=== PATIENT | male | born 1970 | race Caucasian/White ===

== ENCOUNTER 2017-12-22 20:57 | Outpatient (CLI) | payer SELFPAY | END 2017-12-23 06:35 | disposition home or self-care (01) | LOC: SLEEP 20:57 | PROVIDERS: ATTEND Nurse Practitioner Community Health | DX: G47.33 Obstructive sleep apnea (adult) (pediatric) (principal) | CPT/HCPCS: 95811 ==

== ENCOUNTER → 2018-03-31 | Outpatient (CLI) | payer OTHER ==
--- NOTE | 2018-03-31 17:46 | Diagnostic Imaging Report ---
INDICATION: Neck pain radiating to both arms. TIME OF EXAM: 04:51 p.m. FINDINGS: Curvature and alignment of the cervical spine is within normal limits. There is degenerative disc disease at the C6-C7 and C7-T1 levels with disc space narrowing and marginal spurring. No fractures are seen. Prevertebral tissues are within normal limits. Odontoid appears intact. There is multilevel facet arthropathy. IMPRESSION: Lower cervical spondylosis. No acute bony abnormality is detected. Dictated by: Dictated on workstation # [id number]
--- NOTE | 2018-03-31 17:52 | Diagnostic Imaging Report ---
INDICATION: Mid back pain. TIME OF EXAM: 04:56 p.m. FINDINGS: Curvature and alignment of the thoracic spine is normal. Vertebral body heights are maintained. No acute compression fracture is seen. Generalized thoracic spondylosis with variable disc space narrowing and marginal spurring is noted. The pedicles and paraspinous line are intact. IMPRESSION: Thoracic spondylosis. No acute bony abnormality is detected. Dictated by: Dictated on workstation # [id number]
== END ==
LOC: RAD 16:02
PROVIDERS: ATTEND Chiropractor Sports Physician
DX: M47.813 Spondylosis without myelopathy or radiculopathy, cervicothoracic region (principal)
CPT/HCPCS: 72040; 72072

== ENCOUNTER 2018-10-26 15:15 | Emergency (ER) | payer SELFPAY ==
[~2018-10-26] VITALS: Ht 175.3 cm; Wt 111.1 kg
--- OUTSIDE RECORDS SUMMARY | 2018-10-26 15:20 | XMS REPORT ---
Author Author MARGRET FARFAN Organization [facility] Address [address] [place] [address] Care Team Providers Care Vest Finisher Name Role Phone MARGRET FARFAN Unavailable PROBLEMS Type Condition ICD9-CM Code HOV93-GG Code Onset Dates Condition Status SNOMED Code Problem Simple chronic bronchitis J41.0 Active 54159503 Problem Irritable bowel syndrome with diarrhea K58.0 Active 525035970 Problem LINDA (obstructive sleep apnea) G47.33 Active 94861214 Problem Mild intermittent asthma without complication J45.20 Active 121474715 Problem Plantar wart of both feet B07.0 Active 47510159135689556 Problem Seasonal allergic rhinitis due to other allergic trigger J30.89 Active 033584249 ALLERGIES No Information ENCOUNTERS Encounter Location Date Diagnosis [facility] [id number] [place] [address] May, [id number] [id number] Apr, [facility] [id number] [place] [address] Apr, [facility] [id number] [place] [address] Mar, Bronchitis J40 [facility] [id number] [place] [address] Mar, LINDA (obstructive sleep apnea) G47.33 [facility] [address] [address] Feb, Plantar wart of both feet B07.0 ; Bilateral acute otitis media H66.93 and Simple chronic bronchitis J41.0 [facility] [id number] [place] [address] Feb, Common wart B07.8 ; Plantar wart of both feet B07.0 and Seasonal allergic rhinitis due to other allergic trigger J30.89 [place] [address] [address] 07 Feb, 2018 Bronchitis J40 and Irritable bowel syndrome with diarrhea K58.0 [place] [id number] [place] [address] Feb, [place] [address] [address] Jan, [place] [address] [address] Dec, [address] [place] [id number] Dec, Dental examination Z01.20 [place] [address] [address] [address] Dec, Cervicalgia M54.[id number] [place] [id number] Nov, Dental examination Z01.20 [place] [id number] [place] [address] Nov, LINDA (obstructive sleep apnea) G47.33 [place] [id number] [place] [address] Nov, Other secondary chronic gout of hip with tophus, 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 [place] [id number] [place] [address] 04 Nov, 2017 LINDA (obstructive sleep apnea) G47.33 ; Other eczema L30.8 and Mild intermittent asthma without complication J45.20 [place] [id number] [place] [address] Nov, LINDA (obstructive sleep apnea) G47.33 ; Cervicalgia M54.2 ; Other secondary chronic gout of hip with tophus, 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 ; Otitis of both ears H66.93 ; Other eczema L30.8 and Mild intermittent asthma without complication J45.20 IMMUNIZATIONS No Known Immunizations SOCIAL HISTORY Never Assessed REASON FOR VISIT PFT PLAN OF CARE VITAL SIGNS MEDICATIONS Unknown Medications RESULTS No Results PROCEDURES No Known procedures INSTRUCTIONS MEDICATIONS ADMINISTERED No Known Medications MEDICAL (GENERAL) HISTORY Type Description Date Medical History Narcolepsy Medical History Somnabulism Medical History Asthma Medical History Sleep Apnea Medical History Gout Medical History Eczema Medical History Hearing Loss - Right Ear Medical History Arthritis Surgical History Cholecysectomy 2017 Surgical History Umbilical Hernia Repair 2017 Hospitalization History Gallbladder Related Illness - Prior to Cholecysectomy 2017
--- OUTSIDE RECORDS SUMMARY | 2018-10-26 15:20 | XMS REPORT ---
Author Author MARGRET FARFAN Organization [facility] Address [address] [place] [address] Care Team Providers Care Mechanical Equipment Test Engineer Name Role Phone MARGRET FARFAN Unavailable PROBLEMS Type Condition ICD9-CM Code VCE63-JD Code Onset Dates Condition Status SNOMED Code Problem Simple chronic bronchitis J41.0 Active 67268239 Problem Irritable bowel syndrome with diarrhea K58.0 Active 632284516 Problem LINDA (obstructive sleep apnea) G47.33 Active 86113485 Problem Mild intermittent asthma without complication J45.20 Active 080684893 Problem Plantar wart of both feet B07.0 Active 52425751072438346 Problem Seasonal allergic rhinitis due to other allergic trigger J30.89 Active 041765566 ALLERGIES No Information ENCOUNTERS Encounter Location Date Diagnosis [facility] [id number] [place] [address] May, [facility] [address] [id number] [id number] Apr, [facility] [address] [place] [address] Mar, Bronchitis J40 [facility] [id number] [place] [address] Mar, LINDA (obstructive sleep apnea) G47.33 [facility] [address] [place] [address] Feb, Plantar wart of both feet B07.0 ; Bilateral acute otitis media H66.93 and Simple chronic bronchitis J41.0 [facility] [address] [place] [address] Feb, Common wart B07.8 ; Plantar wart of both feet B07.0 and Seasonal allergic rhinitis due to other allergic trigger J30.89 [address] [place] [address] [place] [address] 07 Feb, 2018 Bronchitis J40 and Irritable bowel syndrome with diarrhea K58.0 [place] [address] [place] [address] Feb, [place] [id number] [place] [address] Jan, [place] [id number] [place] [address] Dec, [address] [place] [phone] Dec, Dental examination Z01.20 [place] [id number] [place] [address] Dec, Cervicalgia M54.[address] [place] [id number] Nov, Dental examination Z01.20 [place] [id number] [place] [address] Nov, LINDA (obstructive sleep apnea) G47.33 [place] [id number] [place] [address] Nov, Other secondary chronic gout of hip with tophus, 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 [place] [address] [place] [address] Nov, LINDA (obstructive sleep apnea) G47.33 ; Other eczema L30.8 and Mild intermittent asthma without complication J45.20 [place] [address] [place] [address] Nov, LINDA (obstructive sleep apnea) G47.33 ; Cervicalgia M54.2 ; Other secondary chronic gout of hip with tophus, 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
--- OUTSIDE RECORDS SUMMARY | 2018-10-26 15:20 | XMS REPORT ---
Author Author MARGRET FARFAN Organization [facility] Address [address] [place] [address] Care Team Providers Care Blind Eyeletter Name Role Phone MARGRET FARFAN Unavailable PROBLEMS Type Condition ICD9-CM Code FYE11-IO Code Onset Dates Condition Status SNOMED Code Problem Simple chronic bronchitis J41.0 Active 44719708 Problem Irritable bowel syndrome with diarrhea K58.0 Active 215190967 Problem LINDA (obstructive sleep apnea) G47.33 Active 04191932 Problem Mild intermittent asthma without complication J45.20 Active 113362333 Problem Plantar wart of both feet B07.0 Active 63087175586981786 Problem Seasonal allergic rhinitis due to other allergic trigger J30.89 Active 338786715 ALLERGIES No Information ENCOUNTERS Encounter Location Date Diagnosis [place] [address] [address] May, [place] [address] [address] May, Bronchitis J40 [place] [address] [address] Apr, [place] [address] [address] Mar, Bronchitis J40 [facility] [address] [address] Mar, LINDA (obstructive sleep apnea) G47.33 [place] [address] [address] Feb, Plantar wart of both feet B07.0 ; Bilateral acute otitis media H66.93 and Simple chronic bronchitis J41.0 [place] [address] [address] Feb, Common wart B07.8 ; Plantar wart of both feet B07.0 and Seasonal allergic rhinitis due to other allergic trigger J30.89 [place] [address] [id number] [place] [address] 07 Feb, 2018 Bronchitis J40 and Irritable bowel syndrome with diarrhea K58.0 [place] [id number] [place] [address] Feb, [facility] [id number] [place] [address] Jan, [place] [id number] [place] [address] Dec, [address] [id number] [place] [phone] Dec, Dental examination Z01.20 [place] [id number] [place] [address] Dec, Cervicalgia M54.[id number] [place] [phone] Nov, Dental examination Z01.20 [place] [id number] [place] [address] Nov, LINDA (obstructive sleep apnea) G47.33 [place] [id number] [place] [address] Nov, Other secondary chronic gout of hip with tophus, 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 [place] [address] [place] [address] 04 Nov, 2017 LINDA (obstructive sleep apnea) G47.33 ; Other eczema L30.8 and Mild intermittent asthma without complication J45.20 [place] [address] [address], [place] [address] Nov, LINDA (obstructive sleep apnea) G47.33 ; Cervicalgia M54.2 ; Other secondary chronic gout of hip with tophus, 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
--- OUTSIDE RECORDS SUMMARY | 2018-10-26 15:21 | XMS REPORT ---
Author Author MARGRET FARFAN Organization [facility] Address [address] [place] [address] Care Team Providers Care Golf Course Mechanic Name Role Phone MARGRET FARFAN Unavailable PROBLEMS Type Condition ICD9-CM Code CXV09-MQ Code Onset Dates Condition Status SNOMED Code Problem Irritable bowel syndrome with diarrhea K58.0 Active 109341461 Problem LINDA (obstructive sleep apnea) G47.33 Active 88081569 Problem Mild intermittent asthma without complication J45.20 Active 534037245 ALLERGIES Substance Reaction Event Type Date Status Penicillin G Potassium anaphylaxis Drug Allergy Dec, Active ENCOUNTERS Encounter Location Date Diagnosis [address] [id number] [id number] Apr, [facility] [id number] [place] [address] Feb, [facility] [id number] [place] [address] Feb, Bronchitis J40 and Irritable bowel syndrome with diarrhea K58.0 [facility] [id number] [place] [address] Feb, [facility] [id number] [place] [address] Jan, [facility] [id number] [place] [address] Dec, [facility] 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 [place] [address] [place] [address] 04 Nov, 2017 LINDA (obstructive sleep apnea) G47.33 ; Other eczema L30.8 and Mild intermittent asthma without complication J45.20 [place] [id number] [address] Nov, LINDA (obstructive sleep apnea) G47.33 ; Cervicalgia M54.2 ; Other secondary chronic gout of hip with tophus, 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 ; Otitis of both ears H66.93 ; Other eczema L30.8 and Mild intermittent asthma without complication J45.20 IMMUNIZATIONS No Known Immunizations SOCIAL HISTORY Never Assessed REASON FOR VISIT Abdominal pain-QAMAR ruvalcaba, sleep study PLAN OF CARE VITAL SIGNS Height 69 in 2017-12-25 Weight 265.1 lbs 2017-12-25 Temperature 97.4 degrees Fahrenheit 2017-12-25 Heart Rate 105 bpm 2017-12-25 Respiratory Rate 20 2017-12-25 BMI 39.14 kg/m2 2017-12-25 Blood pressure systolic 116 mmHg 2017-12-25 Blood pressure diastolic 82 mmHg 2017-12-25 MEDICATIONS Medication Instructions Dosage Frequency Start Date End Date Duration Status Cyclobenzaprine HCl 10 mg Orally Three times a day 1 tablet as needed 8h Dec, Active Symbicort 80-4.5 MCG/ACT Inhalation Twice a day 2 puffs 12h Nov, Active Indomethacin 25 MG Orally Twice a day 1 capsule with food or milk 12h Nov, Nov, Active Xopenex HFA 45 MCG/ACT Inhalation every 4 hrs 1 puff as needed 4h Nov, Active Cipro HC 0.2-1 % Otic Twice a day 3 drops into affected ear 12h Nov, 7 day(s) Active Celebrex 200 MG Orally Once a day 1 capsule with food 24h Nov, 30 day(s) Not-Taking RESULTS No Results PROCEDURES No Known procedures [...]
--- OUTSIDE RECORDS SUMMARY | 2018-10-26 15:21 | XMS REPORT ---
Author Author MARGRET FARFAN Organization [facility] Address [address] [place] [address] Care Team Providers Care Senior Product Manager Name Role Phone MARGRET FARFAN Unavailable PROBLEMS Type Condition ICD9-CM Code PYR06-WM Code Onset Dates Condition Status SNOMED Code Problem Simple chronic bronchitis J41.0 Active 71163176 Problem Irritable bowel syndrome with diarrhea K58.0 Active 653550703 Problem LINDA (obstructive sleep apnea) G47.33 Active 61278719 Problem Mild intermittent asthma without complication J45.20 Active 262313756 Problem Plantar wart of both feet B07.0 Active 99913243347512212 Problem Seasonal allergic rhinitis due to other allergic trigger J30.89 Active 440824948 ALLERGIES No Information ENCOUNTERS Encounter Location Date Diagnosis [facility] [address] [place] [address] 07 May, 2018 [facility] [address] [id number] [id number] Apr, [facility] [address] [place] [address] 22 Mar, 2018 LINDA (obstructive sleep apnea) G47.33 [facility] [address] [place] [address] 25 Feb, 2018 Plantar wart of both feet B07.0 ; Bilateral acute otitis media H66.93 and Simple chronic bronchitis J41.0 [facility] [address] [place] [address] Feb, Common wart B07.8 ; Plantar wart of both feet B07.0 and Seasonal allergic rhinitis due to other allergic trigger J30.89 [facility] [address] [place] [address] 07 Feb, 2018 Bronchitis J40 and Irritable bowel syndrome with diarrhea K58.0 [place] [id number] [place] [address] Feb, [place] [id number] [place] [address] Jan, [place] [id number] [place] [address] Dec, [address] [place] [id number] Dec, Dental examination Z01.20 [place] [id number] [place] [address] Dec, Cervicalgia M54.2 [address] [place] [phone] Nov, Dental examination Z01.20 [place] [id number] [place] [address] Nov, LINDA (obstructive sleep apnea) G47.33 [place] [id number] [place] [address] Nov, Other secondary chronic gout of hip with tophus, 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 [place] [address] [place] [address] Nov, LINDA (obstructive sleep apnea) G47.33 ; Other eczema L30.8 and Mild intermittent asthma without complication J45.20 [place] [address] [place] [address] Nov, LINDA (obstructive sleep apnea) G47.33 ; Cervicalgia M54.2 ; Other secondary chronic gout of hip with tophus, 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
--- OUTSIDE RECORDS SUMMARY | 2018-10-26 15:21 | XMS REPORT ---
Author Author MARGRET FARFAN Organization [facility] [place] Address [address] [place] [address] Care Team Providers Care Imaging Science Professor Name Role Phone MARGRET FARFAN Unavailable PROBLEMS Type Condition ICD9-CM Code GQB92-GM Code Onset Dates Condition Status SNOMED Code Problem Simple chronic bronchitis J41.0 Active 37248319 Problem Irritable bowel syndrome with diarrhea K58.0 Active 745496659 Problem LINDA (obstructive sleep apnea) G47.33 Active 44171823 Problem Mild intermittent asthma without complication J45.20 Active 115490507 Problem Plantar wart of both feet B07.0 Active [id number] Problem Seasonal allergic rhinitis due to other allergic trigger J30.89 Active 701811477 ALLERGIES Substance Reaction Event Type Date Status Penicillin G Potassium anaphylaxis Drug Allergy Feb, Active ENCOUNTERS Encounter Location Date Diagnosis [facility] [place] [address] [place] [address] May, [facility] [address] [id number] [id number] Apr, [facility] [place] [address] [place] [address] Feb, Plantar wart of both feet B07.0 ; Bilateral acute otitis media H66.93 and Simple chronic bronchitis J41.0 [facility] [place] [address] [place] [address] Feb, Common wart B07.8 ; Plantar wart of both feet B07.0 and Seasonal allergic rhinitis due to other allergic trigger J30.89 [facility] [place] [address] [place] [address] Feb, Bronchitis J40 and Irritable bowel syndrome with diarrhea K58.0 [facility] [place] [id number] [place] [address] Feb, [place] [address] [place] [address] Jan, [place] [address] [id number] [place] [id number] Dec, [address] [id number] [place] [id number] Dec, Dental examination Z01.20 [place] [id number] [place] [address] Dec, Cervicalgia M54.2 [place] [id number] [place] [id number] Nov, Dental examination Z01.20 [place] [id number] [place] [address] Nov, LINDA (obstructive sleep apnea) G47.33 [place] [id number] [place] [address] Nov, Other secondary chronic gout of hip with tophus, 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 [place] [address] [place] [address] Nov, LINDA (obstructive sleep apnea) G47.33 ; Other eczema L30.8 and Mild intermittent asthma without complication J45.20 [place] [address] [place] [address] Nov, LINDA (obstructive sleep apnea) G47.33 ; Cervicalgia M54.2 ; Other secondary chronic gout of hip with tophus, 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 ; Otitis of both ears H66.93 ; Other eczema L30.8 and Mild intermittent asthma without complication J45.20 IMMUNIZATIONS No Known Immunizations SOCIAL HISTORY Never Assessed REASON FOR VISIT callus Removal, both feet -Issac FOOTE PLAN OF CARE VITAL SIGNS Height 69 in 2018-03-03 Weight 265.2 lbs 2018-03-03 Temperature 98.2 degrees Fahrenheit 2018-03-03 Heart Rate 89 bpm 2018-03-03 Respiratory Rate 20 2018-03-03 Oximetry 98 % 2018-03-03 BMI 39.16 kg/m2 2018-03-03 Blood pressure systolic 128 mmHg 2018-03-03 Blood pressure diastolic 70 mmHg 2018-03-03 MEDICATIONS Medication Instructions Dosage Frequency Start Date End Date Duration Status Cipro HC 0.2-1 % Otic Twice a day 3 drops into affected ear 12h Nov, 7 day(s) Active PredniSONE 20 mg Orally Once a day 1 tablet 24h Feb, Mar, 10 days Active C-PAP Machine 1 as directed Dec, Active Cyclobenzaprine HCl 10 mg Orally Three times a day 1 tablet as needed 8h Dec, Not-Taking Pantoprazole Sodium 20 mg Orally Once a day 1 tablet 24h Feb, 30 day(s) Active Celebrex 200 MG Orally Once a day 1 capsule with food 24h Nov, 30 day(s) Not-Taking Indocin Active Symbicort 80-4.5 MCG/ACT Inhalation Twice a day 2 puffs 12h Nov, Active Xopenex HFA 45 MCG/ACT Inhalation every 4 hrs 1 puff as needed 4h Nov, Active Clindamycin HCl 300 MG Orally every 6 hrs 1 capsule 6h Feb, Mar, 10 day(s) Active Xopenex 1.25 MG/3ML Inhalation every 8 hrs 3 ml 8h Feb, Active Ambien 10 mg Orally Once a day 1 tablet at bedtime as needed 24h Feb, Active RESULTS No Results PROCEDURES No Known procedures INSTRUCTIONS MEDICATIONS ADMINISTERED No Known Medications MEDICAL (GENERAL) HISTORY Type Description Date Medical History Narcolepsy Medical History Somnabulism Medical History Asthma Medical History Sleep Apnea Medical History Gout Medical History Eczema Medical History Hearing Loss - Right Ear Medical History Arthritis Surgical History Cholecysectomy 2016 Surgical History Umbilical Hernia Repair 2017 Hospitalization History Gallbladder Related Illness - Prior to Cholecysectomy 2016
--- OUTSIDE RECORDS SUMMARY | 2018-10-26 15:21 | XMS REPORT ---
Author Author MARGRET FARFAN Organization [facility] Address [address] [place] [address] Care Team Providers Care Script Supervisor Name Role Phone MARGRET FARFAN Unavailable PROBLEMS Type Condition ICD9-CM Code ACE27-BQ Code Onset Dates Condition Status SNOMED Code Problem Irritable bowel syndrome with diarrhea K58.0 Active 526310343 Problem LINDA (obstructive sleep apnea) G47.33 Active 14244445 Problem Mild intermittent asthma without complication J45.20 Active 275454779 ALLERGIES No Information ENCOUNTERS Encounter Location Date Diagnosis [facility] [address] [id number] [id number] Apr, [facility] [id number] [place] [address] Feb, [facility] [id number] [place] [address] Feb, Bronchitis J40 and Irritable bowel syndrome with diarrhea K58.0 [facility] [id number] [place] [address] Feb, [facility] [id number] [place] [address] Jan, [facility] [id number] [place] [address] Dec, [facility] [address] [id number] [id number] Dec, Dental examination Z01.20 [facility] [address] [place] [address] Dec, Cervicalgia M54.2 [facility] [address] [id number] [id number] Nov, Dental examination Z01.20 [place] [address] [place] [address] [id number] [address] Nov, LINDA (obstructive sleep apnea) G47.33 [place] [address] [address] Nov, Other secondary chronic gout of hip with tophus, 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 [place] [address] [place] [address] Nov, LINDA (obstructive sleep apnea) G47.33 ; Other eczema L30.8 and Mild intermittent asthma without complication J45.20 [place] [address] [place] [address] Nov, LINDA (obstructive sleep apnea) G47.33 ; Cervicalgia M54.2 ; Other secondary chronic gout of hip with tophus, 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
--- OUTSIDE RECORDS SUMMARY | 2018-10-26 15:21 | XMS REPORT ---
Author Author MARGRET FARFAN Organization [facility] Address [address] [place] [address] Care Team Providers Care Program Director/Traffic Director Name Role Phone MARGRET FARFAN Unavailable PROBLEMS Type Condition ICD9-CM Code FIF59-EB Code Onset Dates Condition Status SNOMED Code Problem Simple chronic bronchitis J41.0 Active 27482471 Problem Irritable bowel syndrome with diarrhea K58.0 Active 123231286 Problem LINDA (obstructive sleep apnea) G47.33 Active 72390522 Problem Mild intermittent asthma without complication J45.20 Active 821361630 Problem Plantar wart of both feet B07.0 Active 69860134035364124 Problem Seasonal allergic rhinitis due to other allergic trigger J30.89 Active 386971929 ALLERGIES No Information ENCOUNTERS Encounter Location Date Diagnosis [facility] [address] [place] [address] May, [facility] [address] [facility] [address] [id number] [id number] Apr, [facility] [address] [place] [address] Feb, Plantar wart of both feet B07.0 ; Bilateral acute otitis media H66.93 and Simple chronic bronchitis J41.0 [facility] [address] [place] [address] Feb, Common wart B07.8 ; Plantar wart of both feet B07.0 and Seasonal allergic rhinitis due to other allergic trigger J30.89 [facility] [address] [place] [address] 07 Feb, 2018 Bronchitis J40 and Irritable bowel syndrome with diarrhea K58.0 [facility] [address] [place] [address] Feb, [place] [address] [address] Jan, [place] [address] [id number] [place] [address] Dec, [address] [id number] [id number] Dec, Dental examination Z01.20 [place] [address] [address] Dec, Cervicalgia M54.[address] [id number] [id number] Nov, Dental examination Z01.20 [place] [address] [id number] [place] [address] Nov, LINDA (obstructive sleep apnea) G47.[address] [address] Nov, Other secondary chronic gout of hip with tophus, 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 [address] [id number] [place] [address] Nov, LINDA (obstructive sleep apnea) G47.33 ; Other eczema L30.8 and Mild intermittent asthma without complication J45.20 [place] [id number] [place] [address] Nov, LINDA (obstructive sleep apnea) G47.33 ; Cervicalgia M54.2 ; Other secondary chronic gout of hip with tophus, 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
--- OUTSIDE RECORDS SUMMARY | 2018-10-26 15:21 | XMS REPORT ---
Author Author MARGRET FARFAN Organization [facility] Address [address] [place] [address] Care Team Providers Care Seating Upholsterer Name Role Phone MARGRET FARFAN Unavailable PROBLEMS Type Condition ICD9-CM Code EXK94-OP Code Onset Dates Condition Status SNOMED Code Problem Irritable bowel syndrome with diarrhea K58.0 Active 518089460 Problem LINDA (obstructive sleep apnea) G47.33 Active 04822020 Problem Mild intermittent asthma without complication J45.20 Active 117035814 ALLERGIES No Information ENCOUNTERS Encounter Location Date Diagnosis [address] [id number] [id number] Apr, [facility] [id number] [place] [address] Feb, [facility] [id number] [place] [address] Feb, [facility] [id number] [place] [address] Feb, Bronchitis J40 and Irritable bowel syndrome with diarrhea K58.0 [facility] [id number] [place] [address] Feb, [facility] [id number] [place] [address] Jan, [facility] [id number] [place] [address] Dec, [facility] [address] [id number] [id number] Dec, Dental examination Z01.20 [facility] [id number] [place] [address] Dec, Cervicalgia M54.2 [place] [address] [facility] [id number] [place] [id number] Nov, Dental examination Z01.20 [place] [address] [place] [id number] [address] Nov, LINDA (obstructive sleep apnea) G47.33 [place] [address] [facility] [id number] [address] Nov, Other secondary chronic gout of hip with tophus, 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
--- OUTSIDE RECORDS SUMMARY | 2018-10-26 15:21 | XMS REPORT ---
Author Author ROMAINE WISE [facility] Address [address] [place] [address] Care Team Providers Care Mash Preparatory Operator Name Role Phone ROMAINE WISE Unavailable PROBLEMS Type Condition ICD9-CM Code KBW26-JO Code Onset Dates Condition Status SNOMED Code Problem Irritable bowel syndrome with diarrhea K58.0 Active 056766040 Problem LINDA (obstructive sleep apnea) G47.33 Active 97184166 Problem Mild intermittent asthma without complication J45.20 Active 477906076 ALLERGIES Substance Reaction Event Type Date Status Penicillin G Potassium anaphylaxis Drug Allergy Dec, Active ENCOUNTERS Encounter Location Date Diagnosis [place] [id number] [phone] Apr, [facility] [address] [place] [address] Feb, [facility] [id number] [place] [address] Feb, [facility] [address] [place] [address] Feb, Bronchitis J40 and Irritable bowel syndrome with diarrhea K58.0 [facility] [id number] [place] [address] Feb, [facility] [address] [place] [address] Jan, [facility] [address] [id number] [place] [address] Dec, [address] [id number][place] [id number] Dec, Dental examination Z01.20 [facility] [address] [place] [id number], [place] [address] Dec, Cervicalgia M54.2 [facility] [address] [facility] [id number] [id number] Nov, Dental examination Z01.20 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 [place] [address] [place] [address] 04 Nov, 2017 LINDA (obstructive sleep apnea) G47.33 ; Other eczema L30.8 and Mild intermittent asthma without complication J45.20 [place] [address], [place] [address] Nov, LINDA (obstructive sleep apnea) G47.33 ; Cervicalgia M54.2 ; Other secondary chronic gout of hip with tophus, 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 ; Otitis of both ears H66.93 ; Other eczema L30.8 and Mild intermittent asthma without complication J45.20 IMMUNIZATIONS No Known Immunizations SOCIAL HISTORY Never Assessed REASON FOR VISIT broken tooth PLAN OF CARE Activity Details Follow Up 3 Weeks Reason:HONG witn HYG VITAL SIGNS Height 69 in 2017-12-29 Blood pressure systolic 123 mmHg 2017-12-29 Blood pressure diastolic 85 mmHg 2017-12-29 MEDICATIONS Medication Instructions Dosage Frequency Start Date End Date Duration Status Symbicort 80-4.5 MCG/ACT Inhalation Twice a day 2 puffs 12h Nov, Active Celebrex 200 MG Orally Once a day 1 capsule with food 24h Nov, 30 day(s) Not-Taking Cipro HC 0.2-1 % Otic Twice a day 3 drops into affected ear 12h Nov, 7 day(s) Active Cyclobenzaprine HCl 10 mg Orally Three times a day 1 tablet as needed 8h Dec, Not-Taking Xopenex HFA 45 MCG/ACT Inhalation every 4 hrs 1 puff as needed 4h Nov, Active Indocin Active RESULTS No Results PROCEDURES Procedure Date Ordered Result Body Site LTD ORAL EVALUATION - PROBLEM FOCUS December 29, 2017 INTRAORL-PERIAPICAL 1 FILM [id number] December 29, 2017 SURG REMOVAL ERUPTED TOOTH December 29, 2017 BITEWING - SINGLE FILM December 29, 2017 INSTRUCTIONS MEDICATIONS ADMINISTERED No Known Medications MEDICAL [...]
--- OUTSIDE RECORDS SUMMARY | 2018-10-26 15:21 | XMS REPORT ---
Author Author MARGRET FARFAN Organization [facility] Address [address] [place] [address] Care Team Providers Care Soapstoner Name Role Phone MARGRET FARFAN Unavailable PROBLEMS Type Condition ICD9-CM Code LDX76-ZJ Code Onset Dates Condition Status SNOMED Code Problem LINDA (obstructive sleep apnea) G47.33 Active 80471911 Problem Mild intermittent asthma without complication J45.20 Active 172336024 ALLERGIES No Information ENCOUNTERS Encounter Location Date Diagnosis [id number] [place] [id number] Apr, [place] [address] [place] [id number] [place] [address] Jan, [facility] [id number] [place] [address] Dec, [id number] [place] [id number] Dec, Dental examination Z01.20 [place] [address] [place] [address] [id number] [place] [address] Dec, Cervicalgia M54.[id number] [place] [id number] Nov, Dental examination Z01.20 [facility] [id number] [place] [address] Nov, LINDA (obstructive sleep apnea) G47.33 [place] [id number] [place] [address] Nov, Other secondary chronic gout of hip with tophus, 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 [place] [address] [id number] [place] [address] Nov, LINDA (obstructive sleep apnea) G47.33 ; Other eczema L30.8 and Mild intermittent asthma without complication J45.20 [facility] [address] [facility] [id number] [address] Nov, LINDA (obstructive sleep apnea) G47.33 ; Cervicalgia M54.2 ; Other secondary chronic gout of hip with tophus, 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
--- OUTSIDE RECORDS SUMMARY | 2018-10-26 15:21 | XMS REPORT ---
Author Author MARGRET FARFAN Organization [facility] Address [address] [place] [address] Care Team Providers Care Mottler Machine Feeder Name Role Phone MARGRET FARFAN Unavailable PROBLEMS Type Condition ICD9-CM Code PCV41-AV Code Onset Dates Condition Status SNOMED Code Problem Simple chronic bronchitis J41.0 Active 81748128 Problem Irritable bowel syndrome with diarrhea K58.0 Active 521956971 Problem LINDA (obstructive sleep apnea) G47.33 Active 18637385 Problem Mild intermittent asthma without complication J45.20 Active 502382081 Problem Plantar wart of both feet B07.0 Active [id number] Problem Seasonal allergic rhinitis due to other allergic trigger J30.89 Active 366010341 ALLERGIES Substance Reaction Event Type Date Status Penicillin G Potassium anaphylaxis Drug Allergy Feb, Active ENCOUNTERS Encounter Location Date Diagnosis [facility] [id number] [place] [phone] May, [facility] [id number] [id number] Apr, [facility] [address] [place] [phone] Feb, Plantar wart of both feet B07.0 ; Bilateral acute otitis media H66.93 and Simple chronic bronchitis J41.0 [facility] [id number] [place] [phone] Feb, Common wart B07.8 ; Plantar wart of both feet B07.0 and Seasonal allergic rhinitis due to other allergic trigger J30.89 [facility] [address] [place] [phone] Feb, Bronchitis J40 and Irritable bowel syndrome with diarrhea K58.0 [facility] [id number] [place] [phone] Feb, [place] [address] [place] [phone] Jan, [place] [address] [id number] [place] [phone] Dec, [address] [id number] [phone] Dec, Dental examination Z01.20 [place] [id number] [place] [phone] Dec, Cervicalgia M54.[address] [place] [phone] Nov, Dental examination Z01.20 [place] [id number] [place] [phone] Nov, LINDA (obstructive sleep apnea) G47.33 [place] [id number] [place] [phone] Nov, Other secondary chronic gout of hip with tophus, 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 [place] [id number] [place] [phone] Nov, LINDA (obstructive sleep apnea) G47.33 ; Other eczema L30.8 and Mild intermittent asthma without complication J45.[address] [place] [phone] Nov, LINDA (obstructive sleep apnea) G47.33 ; Cervicalgia M54.2 ; Other secondary chronic gout of hip with tophus, 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 PT note s in he was exposed carbon dioxide posioning and it killed his /dog s. PT reports he has been struggling with his breathing -moses FOOTE , Found the PT asleep in the waiting room -Issac FOOTE , PT reports he would like to stop s moking -Luisa FOOTE , PT notes he has been having a lot of bloating when he drink s milk, Nots majority of the time he has diarrhea and is constantly having to go -Issac FOOTE PLAN OF CARE VITAL SIGNS Height 69 in 2018-02-13 Weight 268.1 lbs 2018-02-13 Temperature 98.4 degrees Fahrenheit 2018-02-13 Heart Rate 106 bpm 2018-02-13 Respiratory Rate 20 2018-02-13 Oximetry 97 % 2018-02-13 BMI 39.59 kg/m2 2018-02-13 Blood pressure systolic 138 mmHg 2018-02-13 Blood pressure diastolic 72 mmHg 2018-02-13 MEDICATIONS Medication Instructions Dosage Frequency Start Date End Date Duration Status Xopenex HFA 45 MCG/ACT Inhalation every 4 hrs 1 puff as needed 4h Nov, Active Symbicort 80-4.5 MCG/ACT Inhalation Twice a day 2 puffs 12h Nov, Active Cyclobenzaprine HCl 10 mg Orally Three times a day 1 tablet as needed 8h Dec, Not-Taking Ambien 10 mg Orally Once a day 1 tablet at bedtime as needed 24h Feb, Active Indocin Active C-PAP Machine 1 as directed Dec, Active PredniSONE 20 mg Orally Once a day 2 tablets 24h Feb, Feb, 5 days Active Pantoprazole Sodium 20 mg Orally Once a day 1 tablet 24h Feb, 30 day(s) Active Celebrex 200 MG Orally Once a day 1 capsule with food 24h Nov, 30 day(s) Not-Taking Cipro HC 0.2-1 % Otic Twice a day 3 drops into affected ear 12h Nov, 7 day(s) Active Xopenex 1.25 MG/3ML Inhalation every 8 hrs 3 ml 8h Feb, Active RESULTS No Results PROCEDURES No [...]
--- OUTSIDE RECORDS SUMMARY | 2018-10-26 15:21 | XMS REPORT ---
Author Author MARGRET FARFAN Organization [facility] Address [address] [place] [address] Care Team Providers Care Box Spring Upholsterer Name Role Phone MARGRET FARFAN Unavailable PROBLEMS Type Condition ICD9-CM Code JED15-CJ Code Onset Dates Condition Status SNOMED Code Problem LINDA (obstructive sleep apnea) G47.33 Active 54804870 Problem Mild intermittent asthma without complication J45.20 Active 357489367 ALLERGIES Substance Reaction Event Type Date Status Penicillin G Potassium anaphylaxis Drug Allergy Nov, Active ENCOUNTERS Encounter Location Date Diagnosis [id number] [place] [phone] Apr, [facility] [id number] [place] [phone] Jan, [facility] [id number] [place] [phone] Dec, [address] [place] [phone] Dec, Dental examination Z01.20 [place] [id number] [place] [phone] Dec, Cervicalgia M54.[id number] [place] [id number] Nov, Dental examination Z01.20 [place] [address] [place] [address] [id number] [place] [phone] Nov, LINDA (obstructive sleep apnea) G47.33 [facility] [id number] [place] [phone] Nov, Other secondary chronic gout of hip with tophus, 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 [facility] [id number] [address] Nov, LINDA (obstructive sleep apnea) G47.33 ; Other eczema L30.8 and Mild intermittent asthma without complication J45.20 [facility] [address] [facility] [id number] [place] [address] Nov, LINDA (obstructive sleep apnea) G47.33 ; Cervicalgia M54.2 ; Other secondary chronic gout of hip with tophus, 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
--- OUTSIDE RECORDS SUMMARY | 2018-10-26 15:21 | XMS REPORT ---
Author Author AASHISH COLLINS [facility] Address [address] [place] [address] Care Team Providers Care Moulder Operator Name Role Phone AASHISH COLLINS Unavailable PROBLEMS Type Condition ICD9-CM Code XQZ64-MM Code Onset Dates Condition Status SNOMED Code Problem LINDA (obstructive sleep apnea) G47.33 Active 19209159 Problem Mild intermittent asthma without complication J45.20 Active 303872906 ALLERGIES No Information ENCOUNTERS Encounter Location Date Diagnosis [address] [place] [id number] Apr, [place] [address] [phone] Jan, [facility] [id number] [place] [phone] Dec, [address] [place] [phone] Dec, Dental examination Z01.20 [place] [address] [place] [id number] [place] [phone] Dec, Cervicalgia M54.[id number] [place] [id number] Nov, Dental examination Z01.20 [facility] [id number] [place] [address] Nov, LINDA (obstructive sleep apnea) G47.33 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
--- OUTSIDE RECORDS SUMMARY | 2018-10-26 15:22 | XMS REPORT ---
Author Author MARGRET FARFAN Organization [facility] Address [address] [place] [address] Care Team Providers Care Sales Representative Rural Power Name Role Phone MARGRET FARFAN Unavailable PROBLEMS Type Condition ICD9-CM Code TOP72-IZ Code Onset Dates Condition Status SNOMED Code Problem LINDA (obstructive sleep apnea) G47.33 Active 90182498 Problem Mild intermittent asthma without complication J45.20 Active 439138719 ALLERGIES No Information ENCOUNTERS Encounter Location Date Diagnosis [id number] [place] [id number] Jan, [place] [address] [place] [id number] [place] [phone] Jan, [facility] [id number] [place] [phone] Dec, [id number] [place] [id number] Dec, Dental examination Z01.20 [place] [address] [place] [id number] [place] [phone] Dec, Cervicalgia M54.[id number] [place] [id number] Nov, Dental examination Z01.20 [facility] [id number] [place] [phone] Nov, LINDA (obstructive sleep apnea) G47.33 [place] [address] [place] [address] [id number] [place] [phone] Nov, Other secondary chronic gout of hip with tophus, 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 [place] [address] [place] [id number] [place] [phone] Nov, LINDA (obstructive sleep apnea) G47.33 ; Other eczema L30.8 and Mild intermittent asthma without complication J45.20 [facility] [address] [facility] [id number] [place] [address] Nov, LINDA (obstructive sleep apnea) G47.33 ; Cervicalgia M54.2 ; Other secondary chronic gout of hip with tophus, 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 ; Otitis of both ears H66.93 ; Other eczema L30.8 and Mild intermittent asthma without complication J45.20 IMMUNIZATIONS No Known Immunizations SOCIAL HISTORY Never Assessed REASON FOR VISIT Lab (walk-in) PLAN OF CARE VITAL SIGNS MEDICATIONS Unknown Medications RESULTS No Results PROCEDURES Procedure Date Ordered Result Body Site LIPID PANEL November 10, 2017 COMPREHEN METABOLIC PANEL November 10, 2017 ASSAY OF PSA, TOTAL November 10, 2017 COMPLETE CBC W/AUTO DIFF WBC November 10, 2017 VENIPUNCT, ROUTINE* November 10, 2017 ASSAY THYROID STIM HORMONE November 10, 2017 INSTRUCTIONS MEDICATIONS ADMINISTERED No Known Medications [...]
--- OUTSIDE RECORDS SUMMARY | 2018-10-26 15:22 | XMS REPORT ---
Author Author MARGRET FARFAN Organization [facility] Address [address] [place] [address] Care Team Providers Care Alloy Weigher Name Role Phone MARGRET FARFAN Unavailable PROBLEMS Type Condition ICD9-CM Code LDR63-SH Code Onset Dates Condition Status SNOMED Code Problem LINDA (obstructive sleep apnea) G47.33 Active 17417068 Problem Mild intermittent asthma without complication J45.20 Active 412415759 ALLERGIES Substance Reaction Event Type Date Status Penicillin G Potassium anaphylaxis Drug Allergy Nov, Active ENCOUNTERS Encounter Location Date Diagnosis [id number] [place] [id number] Apr, [facility] [id number] [place] [phone] Jan, [facility] [id number] [place] [phone] Dec, [address] [place] [phone] Dec, Dental examination Z01.20 [place] [address] [id number] [place] [phone] Dec, Cervicalgia M54.[id number] [place] [phone] Nov, Dental examination Z01.20 [place] [address] [place] [address] [id number] [place] [phone] Nov, LIDNA (obstructive sleep apnea) G47.33 [facility] [id number] [place] [phone] Nov, Other secondary chronic gout of hip with tophus, 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 [facility] [address] [place] [id number] [place] [address] Nov, LINDA (obstructive sleep apnea) G47.33 ; Other eczema L30.8 and Mild intermittent asthma without complication J45.20 [facility] [address] [facility] [id number] [place] [address] Nov, LINDA (obstructive sleep apnea) G47.33 ; Cervicalgia M54.2 ; Other secondary chronic gout of hip with tophus, 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 ; Otitis of both ears H66.93 ; Other eczema L30.8 and Mild intermittent asthma without complication J45.20 IMMUNIZATIONS Vaccine Route Administration Date Status DEPO MEDROL 80 MG/ML IM Intramuscular November 07, 2017 Administered SOCIAL HISTORY Never Assessed REASON FOR VISIT Establish Care - MPelvia FOOTE PLAN OF CARE VITAL SIGNS Height 69 in 2017-11-07 Weight 258.4 lbs 2017-11-07 Temperature 98.3 degrees Fahrenheit 2017-11-07 Heart Rate 70 bpm 2017-11-07 Respiratory Rate 20 2017-11-07 Oximetry on room air:95 % 2017-11-07 BMI 38.15 kg/m2 2017-11-07 Blood pressure systolic 130 mmHg 2017-11-07 Blood pressure diastolic 90 mmHg 2017-11-07 MEDICATIONS Medication Instructions Dosage Frequency Start Date End Date Duration Status Symbicort 80-4.5 MCG/ACT Inhalation Twice a day 2 puffs 12h Nov, Active Cipro HC 0.2-1 % Otic Twice a day 3 drops into affected ear 12h Nov, 7 day(s) Active Xopenex HFA 45 MCG/ACT Inhalation every 4 hrs 1 puff as needed 4h Nov, Active Indomethacin 25 MG Orally Twice a day 1 capsule with food or milk 12h Nov, Jan, 30 day(s) Active RESULTS No Results PROCEDURES Procedure Date Ordered Result Body Site DEPO MEDROL 80 MG/ML November 07, 2017 THER/PROPH/DIAG INJ, SC/IM November 07, 2017 INSTRUCTIONS MEDICATIONS ADMINISTERED No Known Medications [...]
[2018-10-26] MEDS ORDERED: DOXY100T2 PO (16:01)
--- NOTE | 2018-10-26 16:02 | ED Integumentary General ---
General Chief Complaint: General Problems/Pain Stated Complaint: L ARM PAIN Nursing Triage Note: PT REPORTS SWOLLEN LYMPH NODES UNDER LEFT ARM THAT STARTED TWO DAYS AGO AND HAS GOTTEN WORSE. PT STATES THAT HE HAD SOME SWOLLEN LYMPH NODES IN HIS GROIN AREA AND WAS GIVEN MEDICATION FOR THEM AND GOT BETTER. Source: patient, other Exam Limitations: no limitations History of Present Illness Date Seen by Provider: October 26, 2018 Time Seen by Provider: 15:46 Initial Comments The patient presents to ER by private conveyance with chief complaint that about one or 2 weeks ago he had some swelling in his groin and was put on a topical antifungal by his primary care doctor and it went away but now he has some nodules in his armpits on the left side. The armpit nodule started about 3-4 days ago and were proceeded by an insect bite or sting on his left forearm and got red and swollen and angry looking. This pain is now improved but he still has a lot of swelling in his arm. He says is very tender. He has lost 10 pounds over the last several months that was intentional he changed his dietary habits. No other constitutional symptoms. No lumps or masses felt in his breast. Allergies and Home Medications Patient Home Medication List Home Medication List Reviewed: Yes Review of Systems Review of Systems Constitutional: No chills, No diaphoresis, No fever, No malaise EENTM: No ear discharge, No hearing loss Respiratory: No cough, No short of breath Cardiovascular: No chest pain, No palpitations Gastrointestinal: No abdominal pain, No nausea Genitourinary: No discharge, No dysuria Past Gnodjag-Znfdnz-Sxhzdk Hx Patient Social History Alcohol Use: Occasionally Uses Recreational Drug Use: Yes Drug of Choice: MARIJUANA Smoking Status: Current Everyday Smoker Recent Foreign Travel: No Contact w/Someone Who Travel: No Recent Infectious Disease Expo: No Recent Hopitalizations: No Physical Abuse: No Sexual Abuse: No Seasonal Allergies Seasonal Allergies: No Past Medical History Surgeries: Yes Gallbladder, Tonsillectomy Respiratory: Yes Sleep Apnea Cardiac: No Neurological: No Genitourinary: No Gastrointestinal: No Musculoskeletal: No Endocrine: No HEENT: No Cancer: No Psychosocial: No Integumentary: No Blood Disorders: No Physical Exam Vital Signs Vital Signs - First Documented 10/26/18 15:27 Temp 96.1 Pulse 89 Resp 16 B/P (MAP) 157/93 (114) Pulse Ox 96 Capillary Refill : Less Than 3 Seconds General Appearance: WD/WN, no apparent distress HEENT: PERRL/EOMI, pharynx normal Neck: full range of motion, normal inspection Cardiovascular: normal peripheral pulses, regular rate, rhythm Respiratory: no respiratory distress, no accessory muscle use Skin: other (chronic eczema. There is a small red round wound with no rash erythema induration or drainage on his left forearm dorsally.) Lymphatic: axilla node tender (L) (there are 3x 1-2 cm mobile, tender, rubbery lymph nodes palpable in the left arm.) Progress/Results/Core Measures Results/Orders Vital Signs/I&O 10/26/18 15:27 Temp 96.1 Pulse 89 Resp 16 B/P (MAP) 157/93 (114) Pulse Ox 96 Blood Pressure Mean: 114 Progress Progress Note : Time: 15:58 Progress Note They do not appear to be abscesses in his armpit so reactive lymph nodes versus a possible infection from his arm wound from previous. We'll put him on doxycycline for 10 days and he has a follow-up appointment with primary care. Departure Impression Primary Impression: Acute lymphangitis Disposition: 01 HOME, SELF-CARE Condition: Stable Departure-Patient Inst. Decision time for Depature: 15:59 Referrals: [facility]/ (PCP) Primary Care Physician MARGRET FARFAN (Family) Primary Care Physician Patient Instructions: LYMPH NODE INFECTION Add. 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 Please finish it. If you have pain you can use a hot compress applied directly across the skin in your armpit as necessary. Tylenol 1000 mg every 8 hours as necessary for pain and ibuprofen 800 mg every 8 hours as needed. Follow-up with your primary care doctor in 1 week for reevaluation of your armpit. All discharge instructions reviewed with patient and/or family. Voiced understanding. Scripts Doxycycline Hyclate (Doxycycline Hyclate) 100 Mg Tablet 100 MG PO BID for 10 Days, #20 TAB 0 Refills Prov: TEREZA LUCAS 10/26/18 TEREZA LUCAS October 26, 2018 16:02
[2018-10-26 16:09] VITALS: BP 157/93
== END 2018-10-26 16:09 | disposition home or self-care (01) ==
LOC: EDUNIT# 15:15 → ER 15:17
DX: L03.91 Acute lymphangitis, unspecified (principal); F12.10 Cannabis abuse, uncomplicated; G47.30 Sleep apnea, unspecified; F17.200 Nicotine dependence, unspecified, uncomplicated; Z90.89 Acquired absence of other organs
CPT/HCPCS: 99281

== ENCOUNTER → 2018-11-10 | Outpatient (CLI) | payer OTHER ==
[~2018-11-10] MED LIST: DOXY100T2 PO
--- NOTE | 2018-11-10 18:40 | Diagnostic Imaging Report ---
PROCEDURE: US Thyroid. TECHNIQUE: Multiple real-time grayscale images were obtained of the thyroid in various projections. INDICATION: Goiter. COMPARISON: None available. FINDINGS: Examination is slightly limited as the most inferior aspect of the thyroid gland is difficult to visualize as it extends inferiorly within the neck within a retrosternal location. Within limits of the examination, the right lobe of the thyroid gland measures 4.6 x 2.0 x 1.6 cm. The left lobe of the thyroid gland appears to measure 4.5 x 2.0 x 1.3 cm. The thyroid gland maintains a homogeneous echotexture without discrete nodule. IMPRESSION: Unremarkable examination within the limits of the exam. Dictated by: Dictated on workstation # [id number]
== END ==
LOC: RAD 11:37
PROVIDERS: ATTEND Otolaryngology Otolaryngology/Facial Plastic Surgery
DX: E04.9 Nontoxic goiter, unspecified (principal)
CPT/HCPCS: 76536

== ENCOUNTER → 2019-06-15 | Outpatient (CLI) | payer SELFPAY ==
[2019-06-15 10:40] LABS: ABG BASE EXCESS 2.3 MMOL/L (-2.5-2.5); ABG OXYGEN SATURATION 96 % (94-100); ABG PCO2 35 MMHG (35-45); ABG PH 7.47 (7.37-7.43); ABG PO2 70 MMHG (79-93); ABG TCO2 26.9 MMOL/L (21.0-31.0)
[2019-06-15 10:47] LABS: ALLENS TEST YES-POS; INSPIRED O2 ROOM AIR; PATIENT TEMP 36.2; VENTILATOR NO
--- NOTE | 2019-06-15 12:26 | Diagnostic Imaging Report ---
INDICATION: Tobacco user. TIME OF EXAM: 10:19 a.m. COMPARISON: No prior studies are available for comparison. FINDINGS: There appear to be calcified lymph nodes in the right hilum consistent with prior granulomatous exposure. No infiltrates are seen. There is no effusion or pneumothorax. IMPRESSION: No acute cardiopulmonary process is detected. Dictated by: Dictated on workstation # [id number]
== END ==
LOC: RAD 10:00
PROVIDERS: ATTEND Internal Medicine Critical Care Medicine
DX: G47.33 Obstructive sleep apnea (adult) (pediatric) (principal); G47.50 Parasomnia, unspecified; J30.9 Allergic rhinitis, unspecified; E66.9 Obesity, unspecified; Z72.0 Tobacco use
CPT/HCPCS: 36600; 71046; 82805

== ENCOUNTER → 2019-06-21 | Outpatient (CLI) | payer SELFPAY ==
[~2019-06-21] MED LIST changes: +RT-ALBUTEROL SULF 2.5 MG/3 ML PRE-MIX VIAL INH ONE
== END ==
LOC: RT 07:57
PROVIDERS: ATTEND Nurse Practitioner Family
DX: G47.33 Obstructive sleep apnea (adult) (pediatric) (principal); G47.50 Parasomnia, unspecified; E66.9 Obesity, unspecified; Z72.0 Tobacco use
CPT/HCPCS: 94060; 94640; 94726; 94729

== ENCOUNTER 2020-02-22 14:01 | Emergency (ER) | payer SELFPAY ==
[~2020-02-22] VITALS: Ht 175.3 cm; Wt 105.5 kg
[~2020-02-22 14:01] MED LIST changes: -RT-ALBUTEROL SULF 2.5 MG/3 ML PRE-MIX VIAL INH ONE
[2020-02-22] MEDS ORDERED: LACTATED RINGERS 1,000 ML IV ONE (14:49)
--- NOTE | 2020-02-22 14:57 | ED Abdominal Pain ---
General Stated Complaint: BACK/STOAMCH PAIN, NAUSEA Source of Information: Patient Exam Limitations: No Limitations History of Present Illness Date Seen by Provider: Feb 22, 2020 Time Seen by Provider: 14:39 Initial Comments The patient presents ER by private conveyance from home with chief complaint of intense abdominal pain bilateral lower quadrants cramping comes and goes. Small insignificant bowel movement this morning and a decent bowel movement yesterday. Had 4 beers to drink last night. Having nausea with no vomiting. He is having lots of belching and feels distended. He's had his gallbladder out no other abdominal surgeries. No trauma. No blood per rectum. No hematuria or dysuria. He took 2 Aleve earlier this morning and it did nothing to help his pain. Allergies and Home Medications Allergies Coded Allergies: No Known Drug Allergies (Unverified , 06/21/19) Home Medications Doxycycline Hyclate 100 Mg Tablet, 100 MG PO BID Prescribed by: TEREZA LUCAS on 10/26/18 1601 Patient Home Medication List Home Medication List Reviewed: Yes Review of Systems Review of Systems Constitutional: No chills, No diaphoresis EENTM: No Blurred Vision, No Double Vision Respiratory: Denies Cough, Denies Shortness of Air Cardiovascular: Denies Chest Pain, Denies Edema Gastrointestinal: See HPI, Abdomen Distended, Abdominal Pain; Denies Constipated, Denies Diarrhea; Nausea, Poor Fluid Intake; Denies Vomiting Genitourinary: Denies Burning, Denies Discharge Musculoskeletal: No back pain, No joint pain Psychiatric/Neurological: Denies Anxiety, Denies Depressed All Other Systems Reviewed Negative Unless Noted: Yes Past Hgfigbr-Hvbbyf-Tzford Hx Patient Social History Alcohol Use: Denies Use Recreational Drug Use: Yes Drug of Choice: MARIJUANA Smoking Status: Never a Smoker Recent Foreign Travel: No Contact w/Someone Who Travel: No Recent Hopitalizations: No Seasonal Allergies Seasonal Allergies: No Past Medical History Surgeries: Yes Gallbladder, Tonsillectomy Respiratory: Yes Sleep Apnea Cardiac: No Neurological: No Genitourinary: No Gastrointestinal: No Musculoskeletal: No Endocrine: No HEENT: No Cancer: No Psychosocial: No Integumentary: No Blood Disorders: No Physical Exam Vital Signs Vital Signs - First Documented 02/22/20 14:46 Temp 36.7 Pulse 84 Resp 20 B/P (MAP) 149/128 (135) Pulse Ox 98 O2 Delivery Room Air Capillary Refill : Height/Weight/BMI Height: 5'9.00" Weight: 245lbs. oz. 111.668836zo; BMI Method:Stated General Appearance: WD/WN, moderate distress HEENT: PERRL/EOMI, pharynx normal Neck: non-tender, full range of motion, supple, normal inspection Respiratory: lungs clear, normal breath sounds, no respiratory distress, no accessory muscle use Cardiovascular: normal peripheral pulses, regular rate, rhythm Peripheral Pulses: 2+ Radial Pulses (R), 2+ Radial Pulses (L) Gastrointestinal: normal bowel sounds (colitis and) Extremities: normal range of motion, non-tender, normal capillary refill Neurologic/Psychiatric: alert, normal mood/affect, oriented x 3 Skin: normal color, warm/dry Focused Exam Lactate Level 02/22/20 16:30: Lactic Acid Level 1.19 Lactic Acid Level Laboratory Tests Test 02/22/20 16:30 Lactic Acid Level 1.19 MMOL/L (0.50-2.00) Progress/Results/Core Measures Results/Orders Lab Results Laboratory Tests Test 02/22/20 14:50 02/22/20 16:08 02/22/20 16:30 Range/Units White Blood Count 10.7 4.3-11.0 10^3/uL Red Blood Count 5.72 4.35-5.85 10^6/uL Hemoglobin 16.6 13.3-17.7 G/DL Hematocrit 49 40-54 % Mean Corpuscular Volume 86 80-99 FL Mean Corpuscular Hemoglobin 29 25-34 PG Mean Corpuscular Hemoglobin Concent 34 32-36 G/DL Red Cell Distribution Width 13.4 10.0-14.5 % Platelet Count 287 130-400 10^3/uL Mean Platelet Volume 9.1 7.4-10.4 FL Neutrophils (%) (Auto) 82 H 42-75 % Lymphocytes (%) (Auto) 11 L 12-44 % Monocytes (%) (Auto) 6 0-12 % Eosinophils (%) (Auto) 1 0-10 % Basophils (%) (Auto) 1 0-10 % Neutrophils # (Auto) 8.7 H 1.8-7.8 X 10^3 Lymphocytes # (Auto) 1.2 1.0-4.0 X 10^3 Monocytes # (Auto) 0.6 0.0-1.0 X 10^3 Eosinophils # (Auto) 0.1 0.0-0.3 10^3/uL Basophils # (Auto) 0.1 0.0-0.1 10^3/uL Sodium Level 133 L 135-145 MMOL/L Potassium Level 3.8 3.6-5.0 MMOL/L Chloride Level 99 98-107 MMOL/L Carbon Dioxide Level 24 21-32 MMOL/L Anion Gap 10 5-14 MMOL/L Blood Urea Nitrogen 10 7-18 MG/DL Creatinine 0.93 0.60-1.30 MG/DL Estimat Glomerular Filtration Rate > 60 BUN/Creatinine Ratio 11 Glucose Level 111 H 70-105 MG/DL Calcium Level 9.6 8.5-10.1 MG/DL Corrected Calcium 9.2 8.5-10.1 MG/DL Total Bilirubin 1.1 H 0.1-1.0 MG/DL Aspartate Amino Transf (AST/SGOT) 23 5-34 U/L Alanine Aminotransferase (ALT/SGPT) 29 0-55 U/L Alkaline Phosphatase 68 40-136 U/L C-Reactive Protein High Sensitivity 0.39 0.00-0.50 MG/DL Total Protein 7.7 6.4-8.2 GM/DL Albumin 4.5 3.2-4.5 GM/DL Lipase 48 8-78 U/L Urine Color YELLOW Urine Clarity SL CLOUDY Urine pH 7.5 5-9 Urine Specific [place] 1.010 L 1.016-1.022 Urine Protein TRACE H NEGATIVE Urine Glucose (UA) NEGATIVE NEGATIVE Urine Ketones 1+ H NEGATIVE Urine Nitrite NEGATIVE NEGATIVE Urine Bilirubin NEGATIVE NEGATIVE Urine Urobilinogen 1.0 < = 1.0 MG/DL Urine Leukocyte Esterase NEGATIVE NEGATIVE Urine RBC (Auto) NEGATIVE NEGATIVE Urine RBC 0-2 /HPF Urine WBC RARE /HPF Urine Squamous Epithelial Cells RARE /HPF Urine Crystals NONE /LPF Urine Bacteria NEGATIVE /HPF Urine Casts PRESENT /LPF Urine Hyaline Casts RARE /LPF Urine Mucus SMALL H /LPF Urine Culture Indicated NO Lactic Acid Level 1.19 0.50-2.00 MMOL/L My Orders Orders - TEREZA LUCAS Ua Culture If Indicated (02/22/20 14:13) Cbc With Automated Diff (02/22/20 14:49) Comprehensive Metabolic Panel (02/22/20 14:49) Lipase (02/22/20 14:49) Hs C Reactive Protein (02/22/20 14:49) Fentanyl Injection (Sublimaze Injection (02/22/20 15:00) Ondansetron Injection (Zofran Injectio (02/22/20 15:00) Ed Iv/Invasive Line Start (02/22/20 14:49) Lactated Ringers (Lr 1000 Ml Iv Solution (02/22/20 14:49) Ct Abdomen/Pelvis W (02/22/20 14:50) Fentanyl Injection (Sublimaze Injection (02/22/20 16:00) Promethazine Injection (Phenergan Injec (02/22/20 16:00) Iohexol Injection (Omnipaque 350 Mg/Ml 1 (02/22/20 16:00) Received Contrast (Hold Metformin- Contr (02/22/20 16:00) Ns (Ivpb) (Sodium Chloride 0.9% Ivpb Bag (02/22/20 16:00) Ed Iv/Invasive Line Start (02/22/20 16:11) Ns Iv 500 Ml (Sodium Chloride 0.9%) (02/22/20 16:11) Ns Iv 500 Ml (Sodium Chloride 0.9%) (02/22/20 16:08) Lactic Acid Analyzer (02/22/20 16:23) Medications Given in ED Current Medications Medications Dose Ordered Sig/Melanie Route Start Time Stop Time Status Last Admin Dose Admin Fentanyl Citrate 50 mcg ONCE ONCE IVP 02/22/20 15:00 02/22/20 15:01 DC 02/22/20 14:59 50 MCG Fentanyl Citrate 100 mcg ONCE ONCE IVP 02/22/20 16:00 02/22/20 16:01 DC 02/22/20 16:16 100 MCG Iohexol 100 ml ONCE ONCE IV 02/22/20 16:00 02/22/20 16:21 DC 02/22/20 16:01 100 ML Lactated Ringer's 1,000 ml @ 0 mls/hr Q0M ONCE IV 02/22/20 14:49 02/22/20 14:51 DC 02/22/20 14:58 0 MLS/HR Ondansetron HCl 8 mg ONCE ONCE IVP 02/22/20 15:00 02/22/20 15:01 DC 9/15/20 14:59 8 MG Promethazine HCl 25 mg ONCE ONCE IVP 02/22/20 16:00 02/22/20 16:01 DC 02/22/20 16:17 25 MG Sodium Chloride 100 ml ONCE ONCE IV 02/22/20 16:00 02/22/20 16:21 DC 02/22/20 16:01 100 ML Sodium Chloride 500 ml @ ud STK-MED ONCE .ROUTE 02/22/20 16:08 02/22/20 16:13 DC 02/22/20 16:18 500 MLS/HR Vital Signs/I&O 02/22/20 14:46 Temp 36.7 Pulse 84 Resp 20 B/P (MAP) 149/128 (135) Pulse Ox 98 O2 Delivery Room Air Progress Progress Note #1: Time: 14:55 Progress Note 50 mg of fentanyl 8 of Zofran. Aseptic vital signs but he has significant amount pain. Bowel obstruction, appendicitis, other intra-abdominal process. Plan to scan his abdomen. Liter of lactated Ringer's. Progress Note #2: Time: 17:45 Progress Note After another dose of Phenergan and fentanyl the patient's pain and nausea are gone. He was asleep when I entered the room. We'll let him go home with outpatient therapy for pancreatitis and follow-up in the next 1-2 weeks with primary care. They can discuss setting up an MRI outpatient. Patient is okay with this plan. Diagnostic Imaging Diagonstic Imaging: CT Plain Films/CT/US/NM/MRI: abdomen, pelvis Comments NAME: [facility] REC#: [id number] PT STATUS: REG ER : 1970 PHYSICIAN: TEREZA LUCAS MD ADMIT DATE: 02/22/20/ER Signed Date of Exam:02/22/20 CT ABDOMEN/PELVIS W INDICATION: Abdominal pain and nausea. TECHNIQUE: Multiple contiguous axial images were obtained through the abdomen and pelvis after administration of intravenous contrast. Auto Exposure Controls were utilized during the CT exam to meet ALARA standards for radiation dose reduction. COMPARISON: There is no prior study for comparison. FINDINGS: The visualized portions of the lung bases are clear except for a calcified granuloma in the right middle lobe. There is no pleural fluid collection or free intraperitoneal air. The liver shows mild diffuse low-density change compatible with fatty infiltration. There is no focal liver lesion. Patient has had prior cholecystectomy. There is no biliary dilatation. The spleen and adrenals appear normal. There is a vague low-density area in the pancreas at the junction of the body and tail measuring about 1.4 cm. We do not have a previous study for comparison. There is no dilatation of the pancreatic duct. This does not appear to be cystic. The kidneys appear unremarkable bilaterally. The retroperitoneum shows no adenopathy. There is no ascites or abnormal fluid collection. Visualized bowel loops appear normal. There are some vascular calcifications noted. There is no pelvic adenopathy or mass. IMPRESSION: There is a faint low-density area in the pancreas at the junction of the body and tail measuring about 1.4 cm. This appears to be solid. This may represent a focal area of pancreatitis or small mass lesion. Correlate with laboratory analysis, MRI may be helpful if clinically warranted. There is mild fatty change of the liver. Patient has had prior cholecystectomy. There is no biliary dilatation. Dictated by: Dictated on workstation # [id number] Dict: 02/22/20 1621 Trans: 02/22/20 1655 [id number] Interpreted by: DEBORAH MARKS MD Electronically signed by: DEBORAH MARKS MD 02/22/20 1955 Reviewed: Reviewed by Me Departure Impression Primary Impression: Pancreatitis Qualified Codes: K85.90 - Acute pancreatitis without necrosis or infection, unspecified Additional Impression: Lesion of pancreas Disposition: 01 HOME, SELF-CARE Condition: Improved Departure-Patient Inst. Decision time for Depature: 17:40 Referrals: [facility] (PCP) Primary Care Physician MARGRET FARFAN (Family) Primary Care Physician Patient Instructions: Pancreatitis (DC) Add. Discharge Instructions: Stick to a bland, soft diet. Liquids are fine. If you have nausea you can take Zofran 1 tablet every 6 hours under the tongue. If this doesn't work you can take Phenergan 1 tablet every 6 hours for nausea. If you have pain use Tylenol 650 mg every 8 hours. You may also use ibuprofen 600 mg every 6 hours. If you have breakthrough pain one tablet of hydrocodone every 6 hours. Hydrocodone will cause constipation and drowsiness. MiraLAX or Colace can be used to stay regular. Avoid alcohol. Plan to follow up in the next 1-2 weeks with your primary care provider. Discuss the small lesion found him on the tail of your pancreas. It will need an MRI to find out if it is anything of concern. If you develop fevers or intractable nausea and/or pain then please return to the nearest ER. Scripts Pantoprazole Sodium (Pantoprazole Sodium) 40 Mg Tablet.dr 40 MG PO DAILY for 14 Days, #14 TAB 0 Refills Prov: TEREZA LUCAS 02/22/20 Promethazine HCl (Promethazine Tablet) 25 Mg Tablet 25 MG PO Q6H PRN for NAUSEA/VOMITING, #15 TAB 0 Refills Prov: TEREZA LUCAS 02/22/20 Ondansetron (Ondansetron Odt) 4 Mg Tab.rapdis 4 MG PO Q6H PRN for NAUSEA/VOMITING, #10 TAB 0 Refills Prov: TEREZA LUCAS 02/22/20 Work/School Note: Work Release Form Date Seen in the Emergency Department: Feb 22, 2020 Return to Work: Feb 28, 2020 Restrictions: No Restrictions Copy Copies To 1: SOILA PATRICK TITUS J Feb 22, 2020 14:57
[2020-02-22 15:00] LABS: BASOPHILS # (AUTO) 0.1 10^3/uL (0.0-0.1); BASOPHILS % (AUTO) 1 % (0-10); EOSINOPHILS # (AUTO) 0.1 10^3/uL (0.0-0.3); EOSINOPHILS % (AUTO) 1 % (0-10); HEMATOCRIT 49 % (40-54); HEMOGLOBIN 16.6 G/DL (13.3-17.7); LYMPHOCYTES # (AUTO) 1.2 X 10^3 (1.0-4.0); LYMPHOCYTES % (AUTO) 11 % (12-44); MEAN CORPUSCULAR HEMOGLOBIN 29 PG (25-34); MEAN CORPUSCULAR HGB CONC 34 G/DL (32-36); MEAN CORPUSCULAR VOLUME 86 FL (80-99); MEAN PLATELET VOLUME 9.1 FL (7.4-10.4); MONOCYTES # (AUTO) 0.6 X 10^3 (0.0-1.0); MONOCYTES % (AUTO) 6 % (0-12); NEUTROPHILS # (AUTO) 8.7 X 10^3 (1.8-7.8); NEUTROPHILS % (AUTO) 82 % (42-75); PLATELET COUNT 287 10^3/uL (130-400); WHITE BLOOD COUNT 10.7 10^3/uL (4.3-11.0)
[2020-02-22] MEDS ORDERED: ONDANSETRON 4 MG/2 ML (SDV) Z0FRAN IVP ONE (15:00)
[2020-02-22] MEDS ORDERED: fentaNYL INJECTION 100 MCG/2 ML AMP IVP ONE ×2 (15:00→16:00)
[2020-02-22 15:18] LABS: ALBUMIN 4.5 GM/DL (3.2-4.5); CHLORIDE 99 MMOL/L (98-107); POTASSIUM 3.8 MMOL/L (3.6-5.0); SODIUM 133 MMOL/L (135-145)
[2020-02-22 15:20] LABS: CALCIUM 9.6 MG/DL (8.5-10.1)
[2020-02-22 15:21] LABS: GLUCOSE 111 MG/DL (70-105); TOTAL PROTEIN 7.7 GM/DL (6.4-8.2)
[2020-02-22 15:22] LABS: CARBON DIOXIDE 24 MMOL/L (21-32)
[2020-02-22 15:23] LABS: BILIRUBIN,TOTAL 1.1 MG/DL (0.1-1.0)
[2020-02-22 15:24] LABS: ALKALINE PHOSPHATASE 68 U/L (40-136); CREATININE SERUM 0.93 MG/DL (0.60-1.30); GFR ESTIMATED > 60
[2020-02-22 15:26] LABS: BUN/CREATININE RATIO 11
[2020-02-22 15:27] LABS: ALANINE AMINOTRANSFERASE 29 U/L (0-55)
[2020-02-22 15:28] LABS: LIPASE 48 U/L (8-78)
[2020-02-22] MEDS ORDERED: IOHEXOL 350 MG/ML 100 ML (OMNIPAQUE 350) VIAL IV ONE (16:00)
[2020-02-22] MEDS ORDERED: PROMETHAZINE INJ 25 MG/ML (PHENERGAN) AMP IVP ONE (16:00)
[2020-02-22] MEDS ORDERED: NS 100 ML (IVPB) BAG IV ONE (16:00)
[2020-02-22] MEDS ORDERED: HOLD METFORMIN - RECEIVED CONTRAST 20 ML VIAL IV SCH (16:00)
[2020-02-22] MEDS ORDERED: NS IV 500 ML 500 ML ONE (16:08)
[2020-02-22] MEDS ORDERED: NS IV 500 ML 500 ML IV ONE (16:11)
[2020-02-22 16:15] LABS: BILIRUBIN,URINE NEGATIVE (NEGATIVE); CLARITY,URINE SL CLOUDY; COLOR,URINE YELLOW; GLUCOSE, URINE (UA) NEGATIVE (NEGATIVE); KETONES,URINE 1+ (NEGATIVE); LEUKOCYTE ESTERASE ,URINE NEGATIVE (NEGATIVE); NITRITE,URINE NEGATIVE (NEGATIVE); PH,URINE 7.5 (5-9); PROTEIN,URINE TRACE (NEGATIVE)
[2020-02-22 16:21] LABS: BACTERIA,URINE NEGATIVE /HPF; HYALINE CASTS, URINE RARE /LPF; RBC,URINE 0-2 /HPF; SQUAMOUS EPITHELIAL CELL,UR RARE /HPF; WBC,URINE RARE /HPF
--- NOTE | 2020-02-22 16:37 | Diagnostic Imaging Report ---
INDICATION: Abdominal pain and nausea. TECHNIQUE: Multiple contiguous axial images were obtained through the abdomen and pelvis after administration of intravenous contrast. Auto Exposure Controls were utilized during the CT exam to meet ALARA standards for radiation dose reduction. COMPARISON: There is no prior study for comparison. FINDINGS: The visualized portions of the lung bases are clear except for a calcified granuloma in the right middle lobe. There is no pleural fluid collection or free intraperitoneal air. The liver shows mild diffuse low-density change compatible with fatty infiltration. There is no focal liver lesion. Patient has had prior cholecystectomy. There is no biliary dilatation. The spleen and adrenals appear normal. There is a vague low-density area in the pancreas at the junction of the body and tail measuring about 1.4 cm. We do not have a previous study for comparison. There is no dilatation of the pancreatic duct. This does not appear to be cystic. The kidneys appear unremarkable bilaterally. The retroperitoneum shows no adenopathy. There is no ascites or abnormal fluid collection. Visualized bowel loops appear normal. There are some vascular calcifications noted. There is no pelvic adenopathy or mass. IMPRESSION: There is a faint low-density area in the pancreas at the junction of the body and tail measuring about 1.4 cm. This appears to be solid. This may represent a focal area of pancreatitis or small mass lesion. Correlate with laboratory analysis, MRI may be helpful if clinically warranted. There is mild fatty change of the liver. Patient has had prior cholecystectomy. There is no biliary dilatation. Dictated by: Dictated on workstation # [id number]
--- NOTE | 2020-02-22 17:51 | NUR ---
Per pt request, pt report given to S/O Maximino Lopez. Maximino voices no further questions or concerns.
[2020-02-22] MEDS ORDERED: PROM25TA14 PO (17:54)
[2020-02-22] MEDS ORDERED: ONDA4TAB11 PO (17:54)
[2020-02-22] MEDS ORDERED: PANT40TA3 PO (17:54)
[2020-02-22] MEDS ORDERED: ACHD5005 PO (17:54)
[2020-02-22 18:03] VITALS: BP 150/91
== END 2020-02-22 18:03 | disposition home or self-care (01) ==
LOC: EDUNIT# 14:01 → ER 14:03
DX: K85.90 Acute pancreatitis without necrosis or infection, unspecified (principal); K86.89 Other specified diseases of pancreas
CPT/HCPCS: 36415; 74177; 80053; 81000; 83605; 83690; 85025; 86141

== ENCOUNTER → 2020-03-03 | Outpatient (CLI) | payer SELFPAY ==
[~2020-03-03] MED LIST changes: +ACHD5005 PO; +ONDA4TAB11 PO; +PANT40TA52 PO; +PROM25TA14 PO
== END ==
LOC: RAD 10:15
PROVIDERS: ATTEND Nurse Practitioner Community Health
DX: Z53.9 Procedure and treatment not carried out, unspecified reason (principal); R10.12 Left upper quadrant pain